=== PATIENT | female | born 1955 | race Caucasian/White ===

== ENCOUNTER 2017-04-09 12:55 | Emergency (ER) | payer OTHER, MEDICARE ==
[~2017-04-09] VITALS: Ht 162.6 cm; Wt 62.1 kg
[~2017-04-09 12:55] MED LIST: KEFLEX500 M1 PO; LEVOTHYROXINE50 MCG PO; MOBIC7.5 M1 PO; OMEPRAZOLE20 M2 PO
[2017-04-09 13:01] VITALS: BP 123/78
--- NOTE | 2017-04-09 13:08 | ED GENERAL ADULT ---
History of Present Illness General Chief Complaint: Lower Extremity Problems Stated Complaint: LEFT MELARA PAIN, X 3 DAYS Source: patient Exam Limitations: no limitations Vital Signs & Intake/Output Vital Signs & Intake/Output Vital Signs Date Time Temp Pulse Resp B/P B/P Pulse O2 O2 Flow FiO2 Mean Ox Delivery Rate 04/09 1301 98.8 84 15 123/78 97 Room Air Room Air Allergies Coded Allergies: No Known Allergies (04/09/17) Triage Note: PT TO ED FOR L MELARA PAIN SINCE TUESDAY NIGHT, DENIES TRAUMA. PT TOOK [employer] CHAIR WITHOUT RELIEF. Triage Nurses Notes Reviewed? yes HPI: 61-year-old female with a history of GERD and hypothyroidism presenting with atraumatic pain/redness/swelling to lower anterior portion of left lower extremity 2 days. She denies fevers, numbness, paresthesias. (SAM VÁZQUEZ PA-C) Reconcile Medications Cephalexin (Keflex) 500 MG CAPSULE 1 CAP PO TID INFECTION Cephalexin (Keflex) 500 MG CAPSULE 1 CAP PO 4 TIMES/DAY cellulitis Levothyroxine Sodium 50 MCG TABLET 1 TAB PO DAILY AC THYROID (Reported) Meloxicam (Mobic) 7.5 MG TABLET 1 TAB PO DAILY PRN PAIN Omeprazole 20 MG CAPSULE.DR 1 CAP PO DAILY GI (Reported) (DEANNA DAVENPORT,CALE López) Past History Travel History Traveled to [place] past 21 day No Medical History Any Pertinent Medical History? 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 No (SAM VÁZQUEZ PA-C) Review of Systems Review of Systems Constitutional: Denies: chills, fever. Respiratory: Reports: no symptoms. Cardiovascular: Reports: no symptoms. GI: Reports: no symptoms. Genitourinary: Reports: no symptoms. Musculoskeletal: Reports: muscle pain (left lower extremity). Neurological/Psychological: Reports: no symptoms. (SAM VÁZQUEZ PA-C) Physical Exam Physical Exam General Appearance: well developed/nourished, no apparent distress Head: atraumatic Respiratory: normal breath sounds, lungs clear Cardiovascular: regular rate/rhythm Extremities: swelling, tenderness, on exam of the left lower extremity there is erythema, trace edema, tenderness to palpation to the lower anterior portion of the extremity, no increased warmth, no calf swelling, negative Homans sign, distal pulses palpable. Core Measures ACS in differential dx? No CVA/TIA Diagnosis: No Severe Sepsis Present: No Septic Shock Present: No (SAM VÁZQUEZ PA-C) Progress Differential Diagnoses I considered the following diagnoses in my evaluation of the patient: [ Cellulitis versus erysipelas versus DVT versus fracture.] Plan of Care: Current Medications Sig/Anaid Start time Last Medication Dose Stop Time Status Admin Cephalexin 500 MG ONCE ONE 04/09 1315 UNVr (Keflex 500MG Cap) 04/09 131 Erythema and edema is localized to lower melara, not circumferential and does not involve the calf. No concern for DVT at this time or spontaneous fracture. No indication for imaging at this time. Exam consistent with cellulitis, borders marked off with a skin pen, prescription for Keflex, will follow up with primary care provider in 2 days for recheck. (SAM VÁZQUEZ PA-C) Initial ED EKG: none (SAM VÁZQUEZ PA-C) Departure Departure Disposition: HOME OR SELF CARE Condition: Stable Clinical Impression Primary Impression: Cellulitis Referrals: JOSE C DAVENPORT,Joana GRAYSON (PCP/Family) Additional Instructions: Take 500 mg of Keflex by mouth 4 times daily for 7 days. Follow-up with your primary care provider in 2 days for reevaluation, or sooner if you develop fevers or notice that the redness is spreading beyond the borders of the pen markings. Departure Forms: Customer Survey General Discharge Information (SAM VÁZQUEZ PA-C) Departure Prescriptions: Current Visit Scripts Cephalexin (Keflex) 1 CAP PO 4 TIMES/DAY 7 Days PA/MAINTENANCE OF WAY FOREMAN Co-Sign Statement Statement: ED Attending supervision documentation- [X] I saw and evaluated the patient. I have also reviewed all the pertinent lab results and diagnostic results. I agree with the findings and the plan of care as documented in the PA's/MAINTENANCE OF WAY FOREMAN's documentation. [X] I have reviewed the ED Record and agree with the PA's/MAINTENANCE OF WAY FOREMAN's documentation. [] Additions or exceptions (if any) to the PAs/MAINTENANCE OF WAY FOREMAN's note and plan are summarized below: [] (DEANNA DAVENPORT,CALE López) Critical Care Note Critical Care Note Critical Care Time: non-applicable (KATHIE GALAN,SAM)
[2017-04-09] MEDS ORDERED: KEFLEX500 M1 PO (13:21)
== END 2017-04-09 13:30 ==
LOC: ERH 12:55
DX: L03.116 Cellulitis of left lower limb (principal)

== ENCOUNTER 2018-04-14 16:38 | Emergency (ER) | payer OTHER, MEDICARE ==
[~2018-04-14] VITALS: Ht 162.6 cm; Wt 61.7 kg
[~2018-04-14 16:38] MED LIST changes: +BACTRIM DS TAB1 EACH PO
[2018-04-14] MEDS ORDERED: KEFLEX500 M1 PO (16:45)
[2018-04-14 16:46] VITALS: BP 135/88
--- NOTE | 2018-04-14 16:46 | ED SKIN/ALLERGY COMPLAINT ---
History of Present Illness General Chief Complaint: Lower Extremity Problems Stated Complaint: "CELLULITIS IN LEFT LEG" Source: patient Exam Limitations: no limitations Vital Signs & Intake/Output Vital Signs & Intake/Output Vital Signs Date Time Temp Pulse Resp B/P B/P Pulse O2 O2 Flow FiO2 Mean Ox Delivery Rate 04/14 1648 96 Room Air 04/14 164 98.7 90 18 135/88 96 Room Air Allergies Coded Allergies: No Known Allergies (04/09/17) Reconcile Medications Cephalexin (Keflex) 500 MG CAPSULE 1 CAP PO TID INFECTION Cephalexin (Keflex) 500 MG CAPSULE 1 CAP PO TID cellulitis Cephalexin (Keflex) 500 MG CAPSULE 1 CAP PO 4 TIMES/DAY cellulitis Cephalexin (Keflex) 500 MG CAPSULE 1 CAP PO 4 TIMES/DAY cellulitis Cephalexin (Keflex) 500 MG CAPSULE 1 CAP PO BID PRN CELLULITIS Levothyroxine Sodium 50 MCG TABLET 1 TAB PO DAILY AC THYROID (Reported) Meloxicam (Mobic) 7.5 MG TABLET 1 TAB PO DAILY PRN PAIN Omeprazole 20 MG CAPSULE.DR 1 CAP PO DAILY GI (Reported) Sulfamethoxazole/Trimethoprim (Bactrim Ds Tablet) 800 MG-160 MG TABLET 1 TAB PO BID CELLULITIS Triage Nurses Notes Reviewed? yes Onset: Abrupt Duration: day(s): (1), constant Timing: recent history Severity: moderate Location: extremities No Modifying Factors: none HPI: 62-year-old female comes into the emergency room for further evaluation of redness to the left ankle. She has a history of cellulitis reports it feels the same. Some associated pain. Denies any fever chills vomiting or trauma to her ankle. She reports she's been compensating with her right foot and she feels burning pain in her right ankle. Denies any falls or trauma to her ankle on the right side. Denies any redness or swelling to the right ankle. (Josué Lam) Past History Travel History Traveled to [place] past 21 day No Medical History Any Pertinent Medical History? 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 No (Josué Lam) Review of Systems Review of Systems Constitutional: Reports: no symptoms. EENTM: Reports: no symptoms. Respiratory: Reports: no symptoms. Cardiovascular: Reports: no symptoms. GI: Reports: no symptoms. Genitourinary: Reports: no symptoms. Musculoskeletal: Reports: no symptoms. Skin: Reports: see HPI. Neurological/Psychological: Reports: no symptoms. Hematologic/Endocrine: Reports: no symptoms. Immunologic/Allergic: Reports: no symptoms. All Other Systems: Reviewed and Negative (Josué Lam) Physical Exam Physical Exam General Appearance: well developed/nourished, mild distress Head: atraumatic Eyes: Bilateral: normal appearance. Ears, Nose, Throat: normal ENT inspection, hearing grossly normal Neck: normal inspection Respiratory: no respiratory distress Back: normal inspection Extremities: normal range of motion, no edema, full range of motion of bilateral ankles, No erythema or warmth or swelling appreciated to the right ankle, dorsalis pedis pulse intact, gross sensation intact, full range of motion of ankle and foot Neurologic/Psych: awake, alert, oriented x 3, normal mood/affect Skin: intact, rash Skin Problem Location: lower extremities (LEFT ANKLE) Skin Problem Character: erythema, 2 small areas of erythema and warmth, tenderness with palpation, no pustules, no purulent drainage, no swelling of the leg, dorsalis pedis pulse intact, gross sensation intact in the foot, full range of motion of ankle and foot, (Josué Lam) Progress Differential Diagnosis: abscess/cellulitis, allergic reaction, contact dermatitis, SEPTIC JOINT Plan of Care: SEE BELOW (Josué Lam) Departure Departure Disposition: HOME OR SELF CARE Condition: Stable Clinical Impression Primary Impression: Cellulitis of left ankle Referrals: Abram DAVENPORT,Brendan Weber (PCP/Family) Additional Instructions: Take Keflex as prescribed. Elevate your leg. Return if any spreading of redness fever chills body aches or any other concerns. Please go over all results of today's visit with your primary care doctor. Contact your primary care doctor to let them know you were here in the emergency room. There may be nonspecific findings which may not be related to your visit today here in the emergency room but may require further evaluation and chronic monitoring by your primary care doctor. If you had a laceration today the chance of foreign body always remains. You should follow-up with your primary care doctor for recheck in 3-5 days for a wound check. If you had an x-ray done there is a chance that a fracture could have been missed on initial read and you should follow-up with your primary care doctor for repeat x-rays if symptoms persist. If your blood pressure was elevated here in the emergency room please have rechecked by [facility] primary care doctor within the next 48. If you were prescribed a narcotic here in the emergency room or any type of controlled substances you're not allowed to drive while taking this medication or operate any type of heavy machinery. Narcotics can make you feel lightheaded dizziness nausea and can cause constipation. You may need to pick up man a stool softener. Thank you for choosing [facility] emergency room. Please return to the emergency room immediately if you have any other concerns worsening of symptoms. Departure Forms: Customer Survey General Discharge Information Prescriptions: Current Visit Scripts Cephalexin (Keflex) 1 CAP PO TID #21 CAP Comments 04/14/2018 5:04:52 PM Patient treated symptomatically with oral antibiotics. Follow-up with PCP. Return if any other concerns. (Josué Lam) PA/RESEARCH NUTRITIONIST Co-Sign Statement Statement: ED Attending supervision documentation- [] I saw and evaluated the patient. I have also reviewed all the pertinent lab results and diagnostic results. I agree with the findings and the plan of care as documented in the PA's/RESEARCH NUTRITIONIST's documentation. [X] I have reviewed the ED Record and agree with the PA's/RESEARCH NUTRITIONIST's documentation. [] Additions or exceptions (if any) to the PAs/RESEARCH NUTRITIONIST's note and plan are summarized below: [] (Louie DAVENPORT,Brent López)
== END 2018-04-14 17:04 ==
LOC: ERH 16:38
DX: L03.115 Cellulitis of right lower limb (principal)